=== PATIENT | female | born 1990 | race Caucasian/White ===

== ENCOUNTER 2024-12-04 17:19 | Emergency (ER) | payer SELFPAY ==
[~2024-12-04] VITALS: Ht 149.9 cm; Wt 58.0 kg
[2024-12-04 17:54] VITALS: O2SAT 99
[2024-12-04] MEDS: KETOROLAC 30MG/ML VIAL IM ONE (18:34)
[2024-12-04 18:49] LABS: CLARITY URINE CLEAR (CLEAR); COLOR URINE YELLOW (YELLOW); GLUCOSE URINE NEGATIVE (NEGATIVE); KETONES URINE NEGATIVE (NEGATIVE); LEUKOCYTE ESTERASE URINE NEGATIVE (NEGATIVE); NITRITE URINE NEGATIVE (NEGATIVE); OCCULT BLOOD URINE TRACE (NEGATIVE); PROTEIN URINE NEGATIVE (NEGATIVE); SPECIFIC GRAVITY URINE 1.024 (1.005-1.030); UROBILINOGEN URINE 0.2 E.U./dL (0.2-1.0)
[2024-12-04 19:28] LABS: BACTERIA URINE 1+; RBC URINE 0-2 /hpf (0-2); SQUAMOUS EPITHELIAL CELL URINE 1+ /lpf (RARE/1+); WBC URINE 0-2 /hpf (0-2)
[2024-12-04 20:14] LABS: BASOPHILS % 0.4 % (0.0-2.0); EOSINOPHILS % 2.3 % (0.0-5.0); HEMATOCRIT. 40.4 % (36.0-48.0); HEMOGLOBIN. 13.5 g/dL (12.0-16.0); LYMPHOCYTES % 29.9 % (20.0-50.0); MEAN CORPUSCULAR HEMOGLOBIN 28.2 pg (28.0-32.0); MEAN CORPUSCULAR HGB CONC 33.4 g/dL (31.0-37.0); MEAN CORPUSCULAR VOLUME 84.4 fL (81.0-99.0); MEAN PLATELET VOLUME 8.5 fl (7.4-10.4); NEUTROPHILS % 59.4 % (40.0-76.0); PLATELET 259 x1000/uL (130-400); RED BLOOD CELL COUNT 4.79 mill/uL (4.2-5.4); RED CELL DISTRIBUTION WIDTH 14.2 % (11.6-14.6); WHITE BLOOD COUNT 7.4 x1000/uL (4.5-11.0)
[2024-12-04 20:23] LABS: CHLORIDE 104 mEq/L (98-107); POTASSIUM 4.1 mEq/L (3.5-5.1); SODIUM 139 mEq/L (136-145)
[2024-12-04 20:24] LABS: CARBON DIOXIDE 28 mEq/L (21-32)
[2024-12-04 20:25] LABS: CALCIUM 9.2 mg/dL (8.7-10.4)
[2024-12-04 20:29] LABS: CREATININE 0.6 mg/dL (0.6-1.0)
[2024-12-04 20:30] LABS: GLUCOSE 99 mg/dL (70-105); UREA NITROGEN BLOOD 10 mg/dL (9-23)
[2024-12-04 20:31] LABS: ALANINE AMINOTRANSFERASE 41 IU/L (10-49); ALBUMIN 4.5 g/dL (3.2-4.8); ASPARTATE AMINOTRANSFERASE 24 IU/L (<34)
[2024-12-04 20:32] LABS: BILIRUBIN DIRECT 0.1 mg/dL (<=3.0); BILIRUBIN TOTAL 0.5 mg/dL (0.1-1.0); PROTEIN TOTAL 7.5 g/dL (6.0-8.3)
[2024-12-04] MEDS ORDERED: IBUP-2029 MT (21:52)
[2024-12-04] MEDS ORDERED: ACET-2708 MT (21:53)
[2024-12-04 22:06] VITALS: BP 108/59; PULSE 68; RESP 20; TEMP 36.6; O2SAT 99
== END 2024-12-04 22:06 | disposition home or self-care (01) ==
LOC: ER 17:19
DX: R10.2 Pelvic and perineal pain (principal); I51.9 Heart disease, unspecified; Z90.710 Acquired absence of both cervix and uterus
CPT/HCPCS: 80076; 80048; 81003; 85025; 36415; 74176; 76830; 76856; 96372; 99285; J1885; Z7610